=== PATIENT | male | born 1940 | race Caucasian/White ===

== ENCOUNTER 2020-08-26 06:31 | Day surgery (SDC) | payer MEDICARE, SELFPAY ==
--- NOTE | 2020-08-26 | LES_PTH ---
PATIENT: LORNA DOHERTY LOC[place] [facility] [place][id number] AGE/SX: 80/M ROOM: RE08/26/[address]: Dr. Vlad Muñoz MD : 1940 BED: DIS: 08/26/2020 SPEC #: [id number] RECD: 08/26/20 09:35 STATUS: MANNY REDilma #: [id number] JORDAN: 08/26/20 00:[address]: Vlad Muñoz DEPT: SURGICAL PATHOLOGY RECD BY: Yulia Trejo ENTERED: 08/26/20 10:25 SP TYPE: Lesion OTHR DR: No Primary Care Phys Tissues: A - Skin of nose, NOS B - Skin of nose, NOS C - Skin of nose, NOS Procedures: Frozen Section (charge) Surgery Specimen Level IV HEADER OPERATION: Excision nasal lesion, frozen section PRE-OP DIAGNOSIS: Neoplasm TISSUE SUBMITTED: A - Nasal tip lesion, FS, B - Nasal dorsum lesion, FS, C - Nasal ala lesion, FS FROZEN SECTION DIAGNOSIS A. Nasal tip lesion, biopsy: Basal cell carcinoma. B. Nasal dorsum lesion, biopsy: Basal cell carcinoma. C. Nasal ala lesion, biopsy: Basal cell carcinoma. BARBRA:jaimee 08/26/2020 MICROSCOPIC DIAGNOSIS A. Nasal tip lesion, biopsy: Basal cell carcinoma. B. Nasal dorsum lesion, biopsy: Basal cell carcinoma with focal ulceration and associated inflammation. C. Nasal ala lesion, biopsy: Basal cell carcinoma with focal ulceration and associated inflammation. BARBRA:jaimee 08/27/20 MICROSCOPIC DESCRIPTION Slides are reviewed. GROSS DESCRIPTION A - Received fresh for frozen section diagnosis labeled with the patient's name is a specimen designated nasal tip lesion. The specimen consists of two fragments of alonso-pink soft tissue measuring in aggregate 0.3 x 0.2 x 0.1 cm. The entire specimen is submitted for frozen section in one cassette. B - Received fresh for frozen section diagnosis labeled with the patient's name is a specimen designated nasal dorsum lesion. The specimen consists of three fragments of alonso-pink soft tissue measuring in aggregate 0.3 x 0.2 x 0.1 cm. The entire specimen is submitted for frozen section in one cassette. C - Received fresh for frozen section diagnosis labeled with the patient's name is a specimen designated nasal ala lesion. The specimen consists of two fragments of alonso-pink soft tissue measuring in aggregate 0.4 x 0.2 x 0.1 cm. The entire specimen is submitted for frozen section in one cassette. / SJ:jaimee 08/26/2020 TC:0 CPT: 18987 x3, 64614 x3
[2020-08-26 07:24] VITALS: BP 134/84; PULSE 62; RESP 16; TEMP 36.8; O2SAT 96; BMI 31.6
[2020-08-26] MEDS: Lactated Ringers 1,000 ML 100 ML IV (07:47)
--- NOTE | 2020-08-26 09:04 | PCM.OPRPT ---
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 nasal masses Post-Operative Diagnosis: 2. cutaneous nasal carcinoma Surgery/Procedure Performed:: excisional biopsies of nasal masses (three in total) Type of Anesthesia:: General Description of Procedure: on the day of the procedure, after appropriate informed consent was obtained, the patient was brought to the operating room and placed in supine position on the operating table. he was placed under general endotracheal anesthesia by the anesthesiologist. the LMA was secured, the eyes were taped. he had three distinct nasal lesions that were injected with lidocaine/epinephrine. lesion #1 was of the nasal tip, lesion #2 was at the junction of the left nasal dorsum and left lateral nasal sidewall, and #3 was of the right ala. wedge incisional biopsies were taken of these lesions and sent to pathology for frozen section. all biopsies returned basal cell carcinoma. his best reconstructive option is likely a paramedian forehead flap. radiation is also an option. given his cardiac and neoplastic comorbidities as well as anticoagulated status, it was deemed best to plan for a definitive reconstruction at a tertiary care center. he was transferred to the PACU in stable condition.
[2020-08-26] MEDS: Lidocaine 1% /Epi 1:100 (20ml) 20 ML Vial (09:19)
[2020-08-26] MEDS: Mupirocin Ointment 22gm Tube 1 APPLIC (09:39)
[2020-08-26 10:01] VITALS: BP 133/85; BP 134/84; PULSE 75; RESP 12; TEMP 36.2; O2SAT 95
[2020-08-26 10:15] VITALS: BP 126/72; BP 134/84; PULSE 65; RESP 18; O2SAT 98
[2020-08-26 10:30] VITALS: BP 119/76; BP 134/84; PULSE 62; RESP 18; O2SAT 96
[2020-08-26 10:35] VITALS: BP 119/76; BP 134/84; PULSE 64; RESP 18; TEMP 36.2; O2SAT 96
--- NOTE | 2020-08-26 11:02 | PCM.DC ---
- Discharge Diagnoses Current Active Problems: Current Active and Chronic Problems Basal cell carcinoma of skin of nose (Chronic) You will use the following diet at home:: No restrictions Your food should be the consistency of: Regular Discharge Activity: Return to Normal Activity Call your doctor if your incision/area has: Increased Pain/ Swelling Allergies/Adverse Reactions: Allergies No Known Allergies Allergy (Verified 08/19/20 08:19) Medications to take at Discharge Aspirin E.C. [Ecotrin] 81 mg PO DAILY@0800 08/19/20 Carvedilol [Coreg] 3.125 mg PO BID 08/19/20 Clopidogrel Bisulfate [Clopidogrel] 75 mg PO DAILY 08/19/20 Furosemide [Lasix] 40 mg PO DAILY 08/19/20 Lisinopril 10 mg PO DAILY 08/19/20 Loperamide [Imodium] 2 mg PO Q6H PRN PRN 08/19/20 Oxycodone HCl/Acetaminophen [Oxycodone-Acetaminophen 5-325] 1 each PO PRN PRN 08/19/20 Potassium Chloride [Klor-Con M20] 20 meq PO BID 08/19/20 Sertraline HCl [Zoloft] 50 mg PO DAILY 08/19/20 Primary Care Physician: Care Physician,No Primary [Primary Care Provider] - Test Results: Test results from this visit will be discussed in further detail at your follow-up appointment, if applicable. Please Follow Up With: Javier Muñoz MD When: WENT will contact him 08/27
[2020-08-26 11:27] VITALS: BP 124/74; BP 134/84; PULSE 55; RESP 16; TEMP 36.3; O2SAT 100
== END 2020-08-26 11:47 | disposition home or self-care (01) ==
LOC: SDC 06:31 → AC 06:32
PROVIDERS: Referring Provider Otolaryngology; Visit Provider Otolaryngology
PROC: (CPT 11106; principal; 2020-08-26 08:30)
DX: C44.311 Basal cell carcinoma of skin of nose (principal); Z20.822 Contact with and (suspected) exposure to COVID-19; I25.10 Atherosclerotic heart disease of native coronary artery without angina pectoris; I10 Essential (primary) hypertension; Z79.899 Other long term (current) drug therapy; Z79.02 Long term (current) use of antithrombotics/antiplatelets; Z79.82 Long term (current) use of aspirin; Z85.038 Personal history of other malignant neoplasm of large intestine; Z85.118 Personal history of other malignant neoplasm of bronchus and lung; Z87.891 Personal history of nicotine dependence
CPT/HCPCS: 11106; 11107 ×2; 87426; 88305; 88331; C9803; J7120; A4216; J2405